=== PATIENT | female | born 1965 | race African-American/Black ===

== ENCOUNTER 2017-01-05 04:47 | Emergency (ER) | payer OTHER ==
--- NOTE | 2017-01-05 04:58 | PDOC ---
History of Present Illness - General Stated Complaint: SWELLING AND PAIN ABDOMEN Time Seen by Provider: 01/05/17 04:57 Past History - Past Medical History Allergies/Adverse Reactions: Allergies Allergy/AdvReac Type Severity Reaction Status Date / Time aspirin AdvReac Severe Difficulty Verified 12/18/11 19:00 Breathing Home Medications: Ambulatory Orders Glipizide [Glucotrol Xl] 10 mg PO DAILY 12/18/11 Isoniazid [INH] 100 mg PO DAILY 12/18/11 Simvastatin [Zocor] 10 mg PO HS 12/18/11 Sulfamethoxazole/Trimethoprim [Bactrim *Ds*] 1 tab PO BID #14 tablet 12/18/11 Diabetes: Yes (NIDDM) Hypercholesterolemia: Yes - Suicide/Smoking/Psychosocial Hx Smoking Status: No Smoking History: Never smoked Number of Cigarettes Smoked Daily: 0
[2017-01-05 05:33] VITALS: BMI 33.8
--- NOTE | 2017-01-05 05:39 | PDOC ---
History of Present Illness - General Chief Complaint: Pain, Acute Stated Complaint: SWELLING AND PAIN ABDOMEN Time Seen by Provider: 01/05/17 04:57 History Source: Patient Exam Limitations: No Limitations - History of Present Illness Initial Comments: This is a 51 YOF with h/o DM, HTN, HTN, and multiple abdominal surgeries (CSx3, partial HYST, total HYST) who presents with left lower abdominal pain for the past 1.5 days. The pain is a constant pressure with sharp 8/10 twinges that are episodic. It radiates to the right lower abdomen and down the front of the left leg. She has taken ibuprofen but no other medications for this. She additionally feels like her left lower abdomen is swollen, and has had left leg mild weak feeling, nausea, vomiting, and urinary frequency. She denies incontinence, numbness, tingling, fever, chills, diarrhea, constipation, strange stool color, burning urination, hematuria, strange colors or smells to urine, sick contacts, or injuries recently. She does heavy lifting at her job but nothing out of the ordinary lately. Past History - Past Medical History Allergies/Adverse Reactions: Allergies Allergy/AdvReac Type Severity Reaction Status Date / Time corn Allergy Rash Verified 01/05/17 06:33 Home Medications: Ambulatory Orders Aspirin [ASA -] 81 mg PO DAILY 01/05/17 Glipizide 10 mg PO DAILY 01/05/17 Lisinopril [Zestril] 2.5 mg PO DAILY 01/05/17 Metformin HCl [Metformin HCl ER] 1,000 mg PO DAILY 01/05/17 Metformin HCl [Metformin HCl ER] 1,000 mg PO DAILY 01/05/17 Simvastatin [Zocor -] 40 mg PO HS 01/05/17 Diabetes: Yes (NIDDM) Hypercholesterolemia: Yes - Suicide/Smoking/Psychosocial Hx Smoking Status: No Smoking History: Never smoked Have you smoked in the past 12 months: No Number of Cigarettes Smoked Daily: 0 Information on smoking cessation initiated: No Hx Alcohol Use: No Drug/Substance Use Hx: No Review of Systems - Review of Systems Constitutional: No: Chills, Fever, Unexplained wgt Loss HEENTM: No: Nose Congestion, Throat Pain Respiratory: No: Cough, Shortness of Breath Cardiac (ROS): No: Chest Pain, Palpitations ABD/GI: Yes: Nausea, Vomiting, Other (abdominal pain). No: Constipated, Diarrhea : Yes: Frequency. No: Burning, Dysuria, Hematuria Musculoskeletal: No: Back Pain, Neck Pain Integumentary: No: Bruising, Rash Neurological: No: Headache, Numbness, Tingling, Dizziness Endocrine: No: Unexplained Weight Gain, Unexplained Weight Loss *Physical Exam - Vital Signs Last Vital Signs Temp Pulse Resp BP Pulse Ox 98.7 F 80 18 127/112 99 01/05/17 05:29 01/05/17 05:29 01/05/17 05:29 01/05/17 05:29 01/05/17 05:29 - Physical Exam General Appearance: Yes: Nourished, Appropriately Dressed, Mild Distress, Other (pleasant but uncomfortable appearing short-statured female with significant other at bedside, occasionally a bit tearful, answering questions appropriately) HEENT: positive: EOMI, Normal Voice, Hearing Grossly Normal. negative: Scleral Icterus (R), Scleral Icterus (L), Nasal Congestion Neck: positive: Trachea midline, Supple. negative: Tender, Rigid Respiratory/Chest: positive: Lungs Clear, Normal Breath Sounds. negative: Respiratory Distress, Crackles, Rhonchi, Stridor, Wheezing Cardiovascular: positive: Regular Rhythm, Regular Rate. negative: Murmur Gastrointestinal/Abdominal: positive: Normal Bowel Sounds, Tender (mild LLQ tenderness, otherwise nontender), Soft. negative: Organomegaly, Pulsatile Mass , Guarding Musculoskeletal: positive: Normal Inspection. negative: Decreased Range of Motion, Vertebral Tenderness Extremity: positive: Normal Capillary Refill, Normal Inspection, Normal Range of Motion. negative: Tender, Cyanosis Integumentary: positive: Normal Color, Dry, Warm. negative: Erythema, Rash, Bruising Neurologic: positive: [employer] II-XII NML intact, Fully Oriented, Alert, Normal Mood/ Affect, Normal Response, Motor Strength 5/5, Other (normal gait) ED Treatment Course - LABORATORY CBC & Chemistry Diagram: 01/05/17 05:20 01/05/17 05:20 - RADIOLOGY Radiology Studies Ordered: Category Date Time Status ABDOMEN & PELVIS CT WITH CONTR [CT] Stat CT Scan 01/05/17 05:26 Ordered Medical Decision Making - Medical Decision Making 51 YOF with DM, HTN, HLD who p/w LLQ pain, nausea, vomiting. VSS but on exam with LLQ ttp and appears in mild distress. DDX IBNLT diverticulitis, UTI/pyelo, renal stone, gastroenteritis, bowel obstruction. Ordered is CBCD, CMP, Mg, Phos, lipase, UA cx, CT abdomen/pelvis with PO contrast. 01/05/17 06:59 Ordered Tylenol PO for pain. Minimal leukocytosis, UA unremarkable but awaiting leukocyte esterase. Alkaline phosphatase mild elevation but other LFTs wnl. Patient's care is signed out to oncoming team. *DC/Admit/Observation/Transfer Diagnosis at time of Disposition: Abdominal pain Qualifiers: Abdominal location: left lower quadrant Qualified Code(s): R10.32 - Left lower quadrant pain - Referrals - Patient Instructions - Post Discharge Activity
[2017-01-05 06:21] LABS: BASOPHIL 0.4 % (0-2.0); EOSINOPHIL 1.1 % (0-4.5); MCH 25.3 pg (25.7-33.7); MCHC 34.1 g/dl (32.0-36.0); MEAN CELL VOLUME 74.4 fl (80-96); MEAN PLT VOLUME 8.8 fl (7.5-11.1); NEUTROPHILS 54.6 % (42.8-82.8); PLATELET COUNT 278 K/MM3 (134-434); RDW 13.1 % (11.6-15.6); WHITE BLOOD COUNT 10.7 K/mm3 (4.0-10.0)
--- NOTE | 2017-01-05 06:31 | PDOC ---
Attending Attestation - Resident Resident Name: PearlFatimah - ED Attending Attestation I have performed the following: I have examined & evaluated the patient, The case was reviewed & discussed with the resident, I agree w/resident's findings & plan - HPI HPI: 01/05/17 06:30 Pt comes with LLQ pain, 7 out of 10 pain. She has no heavy lifting, no fever, no dysuria, no constipation and no diarrhea. Pt has never had this before. - Physicial Exam PE: 01/05/17 06:30 Agree with resident's note - Medical Decision Making 01/05/17 06:31 Possible diverticulitis labs pending. CT abd/pelvis with oral contrast pending. 01/05/17 06:31 Pt will be signed out to the morning team. She will be ready for CT scan at 8: 30 AM
[2017-01-05 06:32] LABS: URINE APPEARANCE CLEAR; URINE BILIRUBIN NEGATIVE (NEGATIVE); URINE BLOOD 1+ (NEGATIVE); URINE COLOR LTYELLOW; URINE GLUCOSE (UA) 1+ (NEGATIVE); URINE KETONE NEGATIVE (NEGATIVE); URINE NITRITE NEGATIVE (NEGATIVE); URINE PROTEIN NEGATIVE (NEGATIVE); URINE UROBILINOGEN NEGATIVE mg/dL (0.2-1.0)
[2017-01-05 06:44] LABS: PHOSPHOROUS 3.6 mg/dL (2.5-4.9)
[2017-01-05 06:45] LABS: MAGNESIUM 2.1 mg/dL (1.8-2.4)
[2017-01-05 06:47] LABS: ALK PHOS 141 U/L (45-117); ANION GAP 8 (8-16); BILIRUBIN,TOTAL 0.4 mg/dL (0.2-1.0); CALCIUM 8.9 mg/dL (8.5-10.1); CO2 25 mmol/L (21-32); CREATININE 0.8 mg/dL (0.55-1.02); GLUCOSE,RANDOM 192 mg/dL (74-106); SGPT/ALT 38 U/L (12-78); TOT PROT 7.9 g/dl (6.4-8.2)
[2017-01-05 06:49] LABS: SGOT/AST 30 U/L (15-37)
[2017-01-05 06:49] LABS: URINE MUCUS RARE; URINE RBC < 1; URINE WBC 1
[2017-01-05] MEDS ORDERED: ACETAMINOPHEN 500 MG TABLET (FP) PO ONE (06:58)
[2017-01-05] MEDS ORDERED: ACETAMINOPHEN 1000 MG/100 ML VIAL (NON FORMULARY) IVPB ONE (06:58)
[2017-01-05] MEDS ORDERED: ACETAMINOPHEN 325 MG TABLET (FP) ONE (07:03)
--- NOTE | 2017-01-05 07:18 | PDOC ---
*Physical Exam - Vital Signs Last Vital Signs Temp Pulse Resp BP Pulse Ox 98.7 F 80 18 127/112 99 01/05/17 05:29 01/05/17 05:29 01/05/17 05:29 01/05/17 05:29 01/05/17 05:35 - Physical Exam Comments: 01/05/17 07:32 GENERAL: Awake, alert, and fully oriented, in no acute distress HEAD: No signs of trauma, normocephalic, atraumatic EYES: PERRLA, EOMI, sclera anicteric, conjunctiva clear ENT: Auricles normal inspection, hearing grossly normal, nares patent, oropharynx clear without exudates. Moist mucosa NECK: Normal ROM, supple, no lymphadenopathy, JVD, or masses LUNGS: No distress, speaks full sentences, clear to auscultation bilaterally HEART: Regular rate and rhythm, normal S1 and S2, no murmurs, rubs or gallops, peripheral pulses normal and equal bilaterally. ABDOMEN: Tender in LLQ with rebound. Normoactive bowel sounds. No guarding. No masses EXTREMITIES: Normal inspection, Normal range of motion, no edema. No clubbing or cyanosis. NEUROLOGICAL: Cranial nerves II through XII grossly intact. Normal speech, no focal sensorimotor deficits SKIN: Warm, Dry, normal turgor, no rashes or lesions noted. ED Treatment Course - LABORATORY CBC & Chemistry Diagram: 01/05/17 05:20 01/05/17 05:20 - ADDITIONAL ORDERS Additional order review: Laboratory Results 01/05/17 01/05/17 01/05/17 05:30 05:20 05:20 Sodium Potassium Chloride Carbon Dioxide Anion Gap BUN Creatinine Creat Clearance w eGFR Random Glucose Calcium Phosphorus 3.6 Magnesium 2.1 Total Bilirubin AST ALT Alkaline Phosphatase Total Protein Albumin Lipase 219 Urine Color Ltyellow Urine Appearance Clear Urine pH 5.0 D Ur Specific [place] 1.026 Urine Protein Negative Urine Glucose (UA) 1+ H D Urine Ketones Negative Urine Blood 1+ H Urine Nitrite Negative Urine Bilirubin Negative Urine Urobilinogen Negative Urine WBC (Auto) 1 Urine RBC (Auto) < 1 Ur Epithelial Cells Rare Urine Mucus Rare 01/05/17 05:20 Sodium 138 Potassium 4.9 Chloride 105 Carbon Dioxide 25 Anion Gap 8 BUN 16 Creatinine 0.8 Creat Clearance w eGFR > 60 Random Glucose 192 H Calcium 8.9 Phosphorus Magnesium Total Bilirubin 0.4 AST 30 ALT 38 Alkaline Phosphatase 141 H Total Protein 7.9 Albumin 4.0 Lipase Urine Color Urine Appearance Urine pH Ur Specific [place] Urine Protein Urine Glucose (UA) Urine Ketones Urine Blood Urine Nitrite Urine Bilirubin Urine Urobilinogen Urine WBC (Auto) Urine RBC (Auto) Ur Epithelial Cells Urine Mucus 01/05/17 05:20 RBC 5.09 MCV 74.4 L MCHC 34.1 RDW 13.1 MPV 8.8 Neutrophils % 54.6 Lymphocytes % 37.7 Monocytes % 6.2 Eosinophils % 1.1 Basophils % 0.4 Medical Decision Making - Medical Decision Making 01/05/17 07:17 Patient care assumed from Dr Alexandra. Patient is a 51F with history of NIDDM and HTN here today complaining of left lower abdominal pain. CT pending. Afebrile, vital signs stable. Exam shows some tenderness in LLQ with rebound. 01/05/17 08:07 IV access was not completed, patient refused additional stick this morning. Will do CT with PO contrast only. 01/05/17 18:19 CT shows diverticulitis. Patient has never had diverticulitis before. Will treat with cipro and metro for 10 days. Given return precautions and told to follow up with PCP. Discharged to home. *DC/Admit/Observation/Transfer Diagnosis at time of Disposition: Diverticulitis Abdominal pain Qualifiers: Abdominal location: left lower quadrant Qualified Code(s): R10.32 - Left lower quadrant pain - Discharge Dispostion Disposition: HOME Condition at time of disposition: Good Admit: No - Prescriptions Prescriptions: Ciprofloxacin [Cipro -] 500 mg PO BID #19 tablet Metronidazole [Flagyl -] 500 mg PO TID #29 tablet - Referrals - Patient Instructions Printed Discharge Instructions: DI for Diverticulitis Additional Instructions: Please come back if you have any new, worsening or concerning symptoms. Please see your PMD early this week. - Dr Dias - Post Discharge Activity
[2017-01-05] MEDS ORDERED: CIPROFLOXACIN 500 MG TABLET (RESTRICTED TO ID) PO ONE (08:54)
[2017-01-05] MEDS ORDERED: metroNIDAZOLE 500 MG TABLET PO ONE (08:54)
[2017-01-05] MEDS ORDERED: metroNIDAZOLE 250 MG TABLET ONE (09:11)
[2017-01-05 09:28] VITALS: BP 135/80; PULSE 82; TEMP 98
[2017-01-05 12:49] LABS: URINE LEUK ESTERASE Negative (NEGATIVE)
== END 2017-01-05 09:29 | disposition home or self-care (01) ==
LOC: JER 04:47
DX: K57.92 Diverticulitis of intestine, part unspecified, without perforation or abscess without bleeding (principal); I10 Essential (primary) hypertension; E78.00 Pure hypercholesterolemia, unspecified; E11.9 Type 2 diabetes mellitus without complications; Z79.84 Long term (current) use of oral hypoglycemic drugs
CPT/HCPCS: 36415; 74176-TC; 80053; 81003; 81015; 83690; 83735; 84100; 85025; 87086; 99284-25; Q9967

== ENCOUNTER 2017-01-10 22:47 | Inpatient (IN) | payer OTHER ==
[2017-01-10 22:52] VITALS: BMI 34.3
--- NOTE | 2017-01-10 23:03 | PDOC ---
Rapid Medical Evaluation Chief Complaint: Pain Time Seen by Provider: 01/10/17 22:48 Medical Evaluation: Allergies Allergy/AdvReac Type Severity Reaction Status Date / Time corn Allergy Rash Verified 01/05/17 06:33 01/10/17 22:48 I have performed a brief in-person evaluation of this patient. The patient presents with a chief complaint of: Lower Abdominal Pain Pertinent physical exam findings: Lower abdominal tenderness I have ordered the following: UA, U-Preg. The patient will proceed to the ED for further evaluation
[2017-01-10 23:07] LABS: URINE APPEARANCE SLCLOUDY; URINE BILIRUBIN NEGATIVE (NEGATIVE); URINE BLOOD NEGATIVE (NEGATIVE); URINE COLOR DKYELLOW; URINE GLUCOSE (UA) NEGATIVE (NEGATIVE); URINE KETONE TRACE (NEGATIVE); URINE NITRITE NEGATIVE (NEGATIVE); URINE PROTEIN 2+ (NEGATIVE); URINE UROBILINOGEN NEGATIVE mg/dL (0.2-1.0)
[2017-01-10] MEDS ORDERED: ONDANSETRON 4 MG/2 ML VIAL IVPUSH ONE (23:10)
[2017-01-10] MEDS ORDERED: HYDROmorphone HCL CARPU-JECT 1 MG/1 ML DISP.SYRIN IVPUSH ONE (23:10)
[2017-01-10] MEDS ORDERED: SODIUM CHLORIDE 1,000 ML IV STA (23:10)
[2017-01-10 23:11] LABS: URINE HYALINE CAST 8 /lpf; URINE MUCUS FEW; URINE RBC 8; URINE WBC 5
--- NOTE | 2017-01-10 23:21 | PDOC ---
History of Present Illness - General Chief Complaint: Pain Stated Complaint: PAIN Time Seen by Provider: 01/10/17 23:02 History Source: Patient Exam Limitations: No Limitations - History of Present Illness Initial Comments: 01/10/17 23:15 Patient is a 51F with history of HTN, NIDDM, s/p c/s x2, partial hysterectomy and total hysterectomy here today complaining of lower left quadrant abdominal pain radiating to the right side. The patient was seen 5 days ago and was diagnosed with diverticulitis. She was treated as an outpatient with metro and cipro, which she reports taking as directed. She is now complaining of worsening pain, nausea, vomiting, fevers, chills and diarrhea. She denies blood or melena in stool. She denies blood in vomit. She denies chest pain, shortness of breath and leg swelling. Past History - Past Medical History Allergies/Adverse Reactions: Allergies Allergy/AdvReac Type Severity Reaction Status Date / Time corn Allergy Rash Verified 01/10/17 22:50 Home Medications: Ambulatory Orders Aspirin [ASA -] 81 mg PO DAILY 01/05/17 Ciprofloxacin [Cipro -] 500 mg PO BID #19 tablet 01/05/17 Glipizide 10 mg PO DAILY 01/05/17 Lisinopril [Zestril] 2.5 mg PO DAILY 01/05/17 Metformin HCl [Metformin HCl ER] 1,000 mg PO DAILY 01/05/17 Metronidazole [Flagyl -] 500 mg PO TID #29 tablet 01/05/17 Simvastatin [Zocor -] 40 mg PO HS 01/05/17 COPD: No Diabetes: Yes (NIDDM) HTN: Yes Hypercholesterolemia: Yes - Immunization History Immunization Up to Date: Yes - Suicide/Smoking/Psychosocial Hx Smoking Status: No Smoking History: Never smoked Have you smoked in the past 12 months: No Number of Cigarettes Smoked Daily: 0 Hx Alcohol Use: No Drug/Substance Use Hx: No Review of Systems - Review of Systems Comments:: 01/10/17 23:19 GENERAL/CONSTITUTIONAL: Positive fevers and chills. No weakness. HEAD, EYES, EARS, NOSE AND THROAT: No change in vision. No sore throat. CARDIOVASCULAR: No chest pain or shortness of breath RESPIRATORY: No cough, wheezing, or hemoptysis. GASTROINTESTINAL: Positive for nausea, vomiting, and diarrhea. GENITOURINARY: No dysuria, frequency, or change in urination. SKIN: No rash NEUROLOGIC: No headache, vertigo, loss of consciousness, or change in strength/ sensation. ENDOCRINE: No increased thirst. No abnormal weight change HEMATOLOGIC/LYMPHATIC: No anemia, easy bleeding, or history of blood clots. ALLERGIC/IMMUNOLOGIC: No hives or skin allergy. *Physical Exam - Vital Signs Last Vital Signs Temp Pulse Resp BP Pulse Ox 98.7 F 98 H 156/94 100 01/10/17 22:50 01/10/17 22:50 01/10/17 22:50 01/10/17 22:50 - Physical Exam Comments: 01/10/17 23:21 GENERAL: Awake, alert, and fully oriented, in pain but able to ambulate HEAD: No signs of trauma, normocephalic, atraumatic EYES: PERRLA, EOMI, sclera anicteric, conjunctiva clear ENT: Auricles normal inspection, hearing grossly normal, nares patent, oropharynx clear without exudates. Moist mucosa NECK: Normal ROM, supple, no lymphadenopathy, JVD, or masses LUNGS: No distress, speaks full sentences, clear to auscultation bilaterally HEART: Regular rate and rhythm, normal S1 and S2, no murmurs, rubs or gallops, peripheral pulses normal and equal bilaterally. ABDOMEN: Tender in LLQ. Mildly tender in RLQ. No guarding, no rebound. No masses EXTREMITIES: Normal inspection, Normal range of motion, no edema. No clubbing or cyanosis. NEUROLOGICAL: Cranial nerves II through XII grossly intact. Normal speech, normal gait, no focal sensorimotor deficits SKIN: Warm, Dry, normal turgor, no rashes or lesions noted. ED Treatment Course - LABORATORY CBC & Chemistry Diagram: 01/10/17 23:21 01/10/17 23:21 - ADDITIONAL ORDERS Additional order review: Laboratory Results 01/10/17 23:00 Urine Color Dkyellow Urine Appearance Slcloudy Urine pH 5.0 Ur Specific [place] 1.026 Urine Protein 2+ H Urine Glucose (UA) Negative Urine Ketones Trace H Urine Blood Negative Urine Nitrite Negative Urine Bilirubin Negative Urine Urobilinogen Negative Urine WBC (Auto) 5 Urine RBC (Auto) 8 Ur Epithelial Cells Few Hyaline Casts 8 Urine Mucus Few Urine HCG, Qual Negative Medical Decision Making - Medical Decision Making 01/10/17 23:22 51F with history of DM, HTN, multiple prior abdominal surgeries here today with LLQ pain after being diagnosed with diverticulitis. Compliant with outpatient therapy. Vital signs stable and normal. Will evaluate with labs and CT scan with PO/IV contrast to evaluate the evolution of her disease course. Will treat with iv fluids, dilaudid, and abx. 01/11/17 00:53 Laboratory Tests 01/10/17 01/10/17 23:21 23:21 WBC 13.6 H Hgb 12.2 Hct 36.4 Plt Count 303 BUN 12 D Creatinine 0.8 CBC shows leukocytosis, H/H normal. Kidney function normal. UA negative. 01/11/17 06:54 CT scan, read by imaging personal driver, shows diverticulosis and describes the wall of the descending colon as slightly prominent. Recommends clinical correlation. Patient's abdominal exam is still very tender, patient is requiring pain medication. Will admit to hospitalist for IV antibiotics and a surgical consult. *DC/Admit/Observation/Transfer Diagnosis at time of Disposition: Abdominal pain - Referrals - Patient Instructions - Post Discharge Activity
[2017-01-10 23:33] LABS: BASOPHIL 0.4 % (0-2.0); MCH 25.2 pg (25.7-33.7); MCHC 33.6 g/dl (32.0-36.0); MEAN CELL VOLUME 74.8 fl (80-96); MEAN PLT VOLUME 8.1 fl (7.5-11.1); NEUTROPHILS 64.7 % (42.8-82.8); PLATELET COUNT 303 K/MM3 (134-434); RDW 13.3 % (11.6-15.6); WHITE BLOOD COUNT 13.6 K/mm3 (4.0-10.0)
[2017-01-10] MEDS ORDERED: HYDROmorphone HCL CARPU-JECT 1 MG/1 ML DISP.SYRIN ONE (23:40)
[2017-01-11 00:13] LABS: ANION GAP 13 (8-16); BILIRUBIN,TOTAL 0.3 mg/dL (0.2-1.0); CALCIUM 9.2 mg/dL (8.5-10.1); CO2 22 mmol/L (21-32); CREATININE 0.8 mg/dL (0.55-1.02); GLUCOSE,RANDOM 116 mg/dL (74-106); SGOT/AST 25 U/L (15-37); SGPT/ALT 43 U/L (12-78); TOT PROT 7.5 g/dl (6.4-8.2)
[2017-01-11 00:14] LABS: ALK PHOS 129 U/L (45-117)
[2017-01-11] MEDS ORDERED: PIPERACILLIN/TAZOB 4.5 GM/100 ML PREMIX BAG IVPB ONE ×2 (00:21→01:04)
[2017-01-11] MEDS ORDERED: PIPERACILLIN/TAZOB 4.5 GM 4.5 GM/100 ML BAG IVPB ONE (01:01)
[2017-01-11 01:08] LABS: INR 1.12 (0.82-1.09); PROTHROMBIN TIME (PATIENT) 12.7 SEC (9.98-11.88)
--- NOTE | 2017-01-11 01:57 | PDOC ---
Attending Attestation - HPI HPI: 01/11/17 02:00 The patient is a 51 year old female, with a significant past medical history of DM, hypertension, multiple abdominal surgeries (CSx3, partial HYS, total HYST) who presents to the emergency department complaining of progressively worsening diffuse abdominal pain. She describes the abdominal pain as constant and worse with palpation. The patient states she was seen here at [facility] approx. one week ago for abdominal pain and diagnosed with diverticulitis.She reports associated symptoms of nausea with vomit, fever and chills. She denies chest pain or shortness of breath. Documentation prepared by Chuy Grewal, acting as medical imaging director for Eduardo Solis MD. - Physicial Exam PE: 01/11/17 02:06 Vitals: Triage Vital signs reviewed General Appearance: moderate distress, well nourished well developed Cardiac: Regular rate and rhythym, no murmurs, no rubs, no gallops Lungs: Clear to auscultation bilateral, good air movement bilaterally Abdomen: +Right lower quadrant tenderness. Extremities: Full range of motion to all extremities, no cyanosis, clubbing, or edema Skin: Warm and dry, no rashes or lesions, no rash, no petechiae Neuro: AOX3; Cranial Nerves 2-12 grossly intact, Strength intact to all extremities, Sensation intact to all extremities, gait normal Psych: Normal mood, normal affect <Chuy Grewal - Last Filed: 01/11/17 02:06> - Resident Resident Name: Jacob Dias - ED Attending Attestation I have performed the following: I have examined & evaluated the patient, The case was reviewed & discussed with the resident, I agree w/resident's findings & plan, Exceptions are as noted - Medical Decision Making 01/11/17 02:32 Diverticulitis 1 week ago presents to the ED with worsening abdominal pain nausea vomiting IV fluids Zosyn and repeat CTA ordered Signout 2:30 AM. Doctor contacted follow-up results and reassess. <Eduardo Solis - Last Filed: 01/11/17 02:32>
--- NOTE | 2017-01-11 08:06 | PDOC ---
*Physical Exam - Vital Signs Last Vital Signs Temp Pulse Resp BP Pulse Ox 98.7 F 80 16 110/54 100 01/10/17 22:50 01/11/17 06:55 01/11/17 06:55 01/11/17 06:55 01/10/17 22:50 - Physical Exam Comments: 01/11/17 08:03 Pain currently well controlled with Dilaudid Asleep Discussed case with Hospitalist Resident Dr. Berrios, agrees with admission to admit for Diverticulitis. ED Treatment Course - LABORATORY CBC & Chemistry Diagram: 01/10/17 23:21 01/10/17 23:21 - ADDITIONAL ORDERS Additional order review: Laboratory Results 01/11/17 01/11/17 01/11/17 00:46 00:40 00:21 PT with INR 12.70 H INR 1.12 Sodium Potassium Chloride Carbon Dioxide Anion Gap BUN Creatinine Creat Clearance w eGFR Random Glucose Calcium Total Bilirubin AST ALT Alkaline Phosphatase Total Protein Albumin Lipase Urine Color Urine Appearance Urine pH Ur Specific [place] Urine Protein Urine Glucose (UA) Urine Ketones Urine Blood Urine Nitrite Urine Bilirubin Urine Urobilinogen Urine WBC (Auto) Urine RBC (Auto) Ur Epithelial Cells Hyaline Casts Urine Mucus Urine HCG, Qual Blood Type A POSITIVE A POSITIVE Antibody Screen Negative 01/10/17 01/10/17 23:21 23:00 PT with INR INR Sodium 140 Potassium 3.9 D Chloride 105 Carbon Dioxide 22 Anion Gap 13 BUN 12 D Creatinine 0.8 Creat Clearance w eGFR > 60 Random Glucose 116 H D Calcium 9.2 Total Bilirubin 0.3 D AST 25 ALT 43 Alkaline Phosphatase 129 H Total Protein 7.5 Albumin 4.0 Lipase 136 Urine Color Dkyellow Urine Appearance Slcloudy Urine pH 5.0 Ur Specific [place] 1.026 Urine Protein 2+ H Urine Glucose (UA) Negative Urine Ketones Trace H Urine Blood Negative Urine Nitrite Negative Urine Bilirubin Negative Urine Urobilinogen Negative Urine WBC (Auto) 5 Urine RBC (Auto) 8 Ur Epithelial Cells Few Hyaline Casts 8 Urine Mucus Few Urine HCG, Qual Negative Blood Type Antibody Screen 01/10/17 23:21 RBC 4.87 MCV 74.8 L MCHC 33.6 RDW 13.3 MPV 8.1 Neutrophils % 64.7 Lymphocytes % 26.8 D Monocytes % 7.1 Eosinophils % 1.0 Basophils % 0.4 - Medications Given in the ED: ED Medications Discontinued Medications Generic Name Dose Route Start Last Admin Trade Name Hayse PRN Reason Stop Dose Admin Hydromorphone HCl 1 mg 01/10/17 23:10 01/10/17 23:43 Dilaudid Injection - IVPUSH 01/10/17 23:11 1 mg ONCE ONE Administration Sodium Chloride 1,000 mls @ 1,000 mls/hr 01/10/17 23:10 01/10/17 23:05 Normal Saline - IV 01/11/17 00:09 1,000 mls/hr ASDIR STA Administration Ondansetron HCl 4 mg 01/10/17 23:10 01/10/17 23:43 Zofran Injection IVPUSH 01/10/17 23:11 4 mg ONCE ONE Administration Piperacillin/Tazobactam/Dextrose 4.5 gm 01/11/17 01:04 01/11/17 01:00 Zosyn 4.5gm Ivpb (Premix) IVPB 01/11/17 01:05 4.5 gm NOW ONE Administration *DC/Admit/Observation/Transfer Diagnosis at time of Disposition: Abdominal pain - Discharge Dispostion Decision to Admit order Date/Time: Decision to Admit Order Category Date Time Status Decision to Admit to Hospital Routine Admission 01/11/17 08:01 Ordered - Referrals - Patient Instructions - Post Discharge Activity
[2017-01-11] MEDS ORDERED: morphine SULFATE 4 MG/ML VIAL IVPUSH PRN (08:56)
[2017-01-11] MEDS ORDERED: HEPARIN NA (PORCINE) 5,000 UNITS/ML 1ML VIAL ONE (10:26)
[2017-01-11] MEDS ORDERED: CEFTRIAXONE 1 GM/50 ML BAG ONE (10:26)
[2017-01-11] MEDS ORDERED: METRONIDAZOLE 500 MG PREMIXED 500 MG/100 ML MG IVPB ONE (10:26)
[2017-01-11] MEDS: HEPARIN NA (PORCINE) 5,000 UNITS/ML 1ML VIAL SQ SCH ×2 (10:30→13:41)
[2017-01-11] MEDS: SODIUM CHLORIDE 1,000 ML IV SCH (10:30)
[2017-01-11] MEDS: CEFTRIAXONE 1 GM in DEXTROSE 5%-WATER - 50 ML IVPB SCH ×2 (10:30→13:40)
[2017-01-11] MEDS ORDERED: INSULIN SLIDING SCALE (NOVOLOG) 1 VIAL SQ SCH (11:00)
--- NOTE | 2017-01-11 11:55 | HP ---
CHIEF COMPLAINT: PCP: HISTORY OF PRESENT ILLNESS: ER course was notable for: (1) (2) (3) Recent Travel: PAST MEDICAL HISTORY: PAST SURGICAL HISTORY: Social History: Smoking: Alcohol: Drugs: Family History: Allergies corn Allergy (Verified 01/10/17 22:50) Rash HOME MEDICATIONS: Home Medications Medication Instructions Recorded Aspirin [ASA -] 81 mg PO DAILY 01/05/17 Ciprofloxacin [Cipro -] 500 mg PO BID #19 tablet 01/05/17 Glipizide 10 mg PO DAILY 01/05/17 Lisinopril [Zestril] 2.5 mg PO DAILY 01/05/17 Metformin HCl [Metformin HCl ER] 1,000 mg PO DAILY 01/05/17 Metronidazole [Flagyl -] 500 mg PO TID #29 tablet 01/05/17 Simvastatin [Zocor -] 40 mg PO HS 01/05/17 REVIEW OF SYSTEMS CONSTITUTIONAL: Absent: fever, chills, diaphoresis, generalized weakness, malaise, loss of appetite, weight change HEENT: Absent: rhinorrhea, nasal congestion, throat pain, throat swelling, difficulty swallowing, mouth swelling, ear pain, eye pain, visual changes CARDIOVASCULAR: Absent: chest pain, syncope, palpitations, irregular heart rate, lightheadedness , peripheral edema RESPIRATORY: Absent: cough, shortness of breath, dyspnea with exertion, orthopnea, wheezing, stridor, hemoptysis GASTROINTESTINAL: Absent: abdominal pain, abdominal distension, nausea, vomiting, diarrhea, constipation, melena, hematochezia GENITOURINARY: Absent: dysuria, frequency, urgency, hesitancy, hematuria, flank pain, genital pain MUSCULOSKELETAL: Absent: myalgia, arthralgia, joint swelling, back pain, neck pain SKIN: Absent: rash, itching, pallor HEMATOLOGIC/IMMUNOLOGIC: Absent: easy bleeding, easy bruising, lymphadenopathy, frequent infections ENDOCRINE: Absent: unexplained weight gain, unexplained weight loss, heat intolerance, cold intolerance NEUROLOGIC: Absent: headache, focal weakness or paresthesias, dizziness, unsteady gait, seizure, mental status changes, bladder or bowel incontinence PSYCHIATRIC: Absent: anxiety, depression, suicidal or homicidal ideation, hallucinations. PHYSICAL EXAMINATION Vital Signs - 24 hr 01/10/17 01/11/17 01/11/17 22:50 06:55 09:00 Temperature 98.7 F 98.6 F Pulse Rate [ 80 Right Brachial] Pulse Rate [ 66 Right] Respiratory 98 H 16 16 Rate Blood Pressure 156/94 Blood Pressure 110/54 100/67 [Right Arm] O2 Sat by Pulse 100 99 Oximetry (%) GENERAL: Awake, alert, and fully oriented, in no acute distress. HEAD: Normal with no signs of trauma. EYES: Pupils equal, round and reactive to light, extraocular movements intact, sclera anicteric, conjunctiva clear. No lid lag. EARS, NOSE, THROAT: Ears normal, nares patent, oropharynx clear without exudates. Moist mucous membranes. NECK: Normal range of motion, supple without lymphadenopathy, JVD, or masses. LUNGS: Breath sounds equal, clear to auscultation bilaterally. No wheezes, and no crackles. No accessory muscle use. HEART: Regular rate and rhythm, normal S1 and S2 without murmur, rub or gallop. ABDOMEN: Soft, nontender, not distended, normoactive bowel sounds, no guarding, no rebound, no masses. No hepatomegaly or splenomegaly. MUSCULOSKELETAL: Normal range of motion at all joints. No bony deformities or tenderness. No CVA tenderness. UPPER EXTREMITIES: 2+ pulses, warm, well-perfused. No cyanosis. No clubbing. No peripheral edema. LOWER EXTREMITIES: 2+ pulses, warm, well-perfused. No calf tenderness. No peripheral edema. NEUROLOGICAL: Cranial nerves II-XII intact. Normal speech. Normal gait. PSYCHIATRIC: Cooperative. Good eye contact. Appropriate mood and affect. SKIN: Warm, dry, normal turgor, no rashes or lesions noted, normal capillary refill. Laboratory Results - last 24 hr 01/10/17 01/10/17 01/10/17 23:00 23:21 23:21 WBC 13.6 H RBC 4.87 Hgb 12.2 Hct 36.4 MCV 74.8 L MCH 25.2 L MCHC 33.6 RDW 13.3 Plt Count 303 MPV 8.1 Neutrophils % 64.7 Lymphocytes % 26.8 D Monocytes % 7.1 Eosinophils % 1.0 Basophils % 0.4 PT with INR INR Sodium 140 Potassium 3.9 D Chloride 105 Carbon Dioxide 22 Anion Gap 13 BUN 12 D Creatinine 0.8 Creat Clearance w eGFR > 60 Random Glucose 116 H D Calcium 9.2 Total Bilirubin 0.3 D AST 25 ALT 43 Alkaline Phosphatase 129 H Total Protein 7.5 Albumin 4.0 Lipase 136 Urine Color Dkyellow Urine Appearance Slcloudy Urine pH 5.0 Ur Specific [place] 1.026 Urine Protein 2+ H Urine Glucose (UA) Negative Urine Ketones Trace H Urine Blood Negative Urine Nitrite Negative Urine Bilirubin Negative Urine Urobilinogen Negative Urine WBC (Auto) 5 Urine RBC (Auto) 8 Ur Epithelial Cells Few Hyaline Casts 8 Urine Mucus Few Urine HCG, Qual Negative Blood Type Antibody Screen 01/11/17 01/11/17 01/11/17 00:21 00:40 00:46 WBC RBC Hgb Hct MCV MCH MCHC RDW Plt Count MPV Neutrophils % Lymphocytes % Monocytes % Eosinophils % Basophils % PT with INR 12.70 H INR 1.12 Sodium Potassium Chloride Carbon Dioxide Anion Gap BUN Creatinine Creat Clearance w eGFR Random Glucose Calcium Total Bilirubin AST ALT Alkaline Phosphatase Total Protein Albumin Lipase Urine Color Urine Appearance Urine pH Ur Specific [place] Urine Protein Urine Glucose (UA) Urine Ketones Urine Blood Urine Nitrite Urine Bilirubin Urine Urobilinogen Urine WBC (Auto) Urine RBC (Auto) Ur Epithelial Cells Hyaline Casts Urine Mucus Urine HCG, Qual Blood Type A POSITIVE A POSITIVE Antibody Screen Negative ASSESSMENT/PLAN:
[2017-01-11] MEDS: METRONIDAZOLE 500 MG PREMIXED 500 MG/100 ML MG IVPB SCH ×3 (13:01→17:21)
[2017-01-11 13:42] LABS: CHOLESTEROL 122 mg/dL (50-200)
--- NOTE | 2017-01-11 13:57 | PN ---
Teaching Attending Note Name of Resident: Patrizia Berrios ATTENDING PHYSICIAN STATEMENT I saw and evaluated the patient. I reviewed the resident's note and discussed the case with the resident. I agree with the resident's findings and plan as documented. SUBJECTIVE: CC: ABd pain and diarrhea. HPI: 51 y/o pleasant lady with h/o HTN, DM, Hysterectomy who presented with ABD pain and diarrhea x 1 week . A week ago , she presented to ER with abd pain/ diarrhea /N/V and was diagnosed with acute sigmoid diverticulitis depending on a CT scan image. She was dc 'd on cipro and flagyl. Her sx continued after abx and she felt her abd is more distended now. reports nausea and non bilious or bloody vomiting. abd pain is in LLQ and suprapubic area, with minimal radiation to RLQ. diarrhea is watery stool and not bloody . reports chills at home . denies dysuria or change in urine habits LAst colonoscopy 10 yrs ago with no malignancy reportedly and she denies any h/ o colon cancer in family OBJECTIVE: NAD , AAOx3 ,pleasant and cooperative CV: RRR, no MRG Lung s: CTAB Abd: soft, ND , TTP in LLQ , and suprapubic area with no rebound tenderness or guarding. Ros[place] sign Neg , Lea's Neg , [place] Neg. , + Psoas and Neg Obterator's . Neg CVA tenderness. EXT: no edema or erythema. Neuro : EOMI, round equal pupils, reactive tolight , No facial droop. tongue at mid line , Nl facial sensation . Strenght 5/5 in upper and lower ext proximally and distally . Sensation to light touch NL. reflexes 2+ knee jerk, and 1+ biceps b/l. ASSESSMENT AND PLAN: 51 y/o pleasant lady with h/o HTN, DM, Hysterectomy and recent dx of sigmoid colitis who presented with ABD pain and diarrhea x 1 week after despite being on Abx. She was diagnosed with acute diverticulitis and colitis 1- Acute diverticulitis with colitis: No evidence of acute appendicitis, or acute cholecystitis. No hemodynamic instability. No peritoneal signs . - start ceftriaxone and flagyl - send stool cx and C diff. - IVF - bowel rest today . clears tomorrow - Monitor abd exam. - blood cx sent in ER 2- H/o DM : A1c 9 . was recently started on Meds - hold po meds and add SSI 3- H/o HTN: Cont lisinopril 4- H/o HLP , cont lipitor . HLOC.
[2017-01-11] MEDS: ENOXAPARIN NA (PORCINE) 40 MG/0.4 ML DISP.SYRIN SQ SCH (14:24)
--- NOTE | 2017-01-11 15:23 | HP ---
CHIEF COMPLAINT: LLQ pain PCP: Not on staff HISTORY OF PRESENT ILLNESS: Patient is a 51 year old female with a PMHx of HTN, HLD, NIDDMII who presents today for worsening abdominal pain. Patient initially presented a week ago for LLQ abdominal pain and was found to have Diverticulitis. Patient was discharged from the ED with PO antibiotics and was told to return if symptoms worsened. Patient reports she was in her normal state of health last week when she started having sudden LLQ abdominal pain associated with nausea and diarrhea. Patient states she was given PO antibiotics from this ED and reports compliance with the medication. However, the abdominal pain persisted and worsened throughout the week, which prompted this hospital visit. Patient reports the pain is in the LLQ now radiating to the RLQ region and describes it as a "gabbing" and "squeezing" that is constant in nature, worsened when she eats, walks or leans forward and alleviated with Ibuprofen. Pain is now associated with nausea, vomiting x3 and nonbloody diarrhea. Patient does report a similar history of pain but not as severe as this a few years ago when she was diagnosed with a food allergy to corn and corn syrup products. Patient had a colonscopy 10 years ago with normal findings. She is unable to recall why she needed a colonoscopy at age 40. Patient denies any chronic NSAID use. She does admit to low fiber diet and has recently modified her diet after her diagnosis of Diabetes to more protein intake. Otherwise, patient denies fever, chills, chest pain, palpitations, shortness of breath, acute vision changes, headaches, dysuria, hematuria, frequency. ER course was notable for: (1)Abdominal CT with contrast that shows worsening Diverticulitis and Colitis (2) 1 Bolus IV NS (3) Zosyn 4.5mg IV, Zofran, and Dilaudid Recent Travel: Denies PAST MEDICAL HISTORY: NIDDMII, HTN, HLD. PAST SURGICAL HISTORY: 3 C-sections, Tummy tuck, and Two Hysterectomies- One partial then one complete Social History: Lives with Fiance and three children. 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 Smoking: Denies Alcohol: Denies Drugs: Denies Family History: Mother- DM Allergies: corn Allergy (Verified 01/10/17 22:50) Rash and Diarrhea HOME MEDICATIONS: Home Medications Medication Instructions Recorded Aspirin [ASA -] 81 mg PO DAILY 01/05/17 Ciprofloxacin [Cipro -] 500 mg PO BID #19 tablet 01/05/17 Glipizide 10 mg PO DAILY 01/05/17 Lisinopril [Zestril] 2.5 mg PO DAILY 01/05/17 Metformin HCl [Metformin HCl ER] 1,000 mg PO BID 01/05/17 Metronidazole [Flagyl -] 500 mg PO TID #29 tablet 01/05/17 Simvastatin [Zocor -] 40 mg PO HS 01/05/17 Metformin HCl 500 mg PO HS 01/11/17 REVIEW OF SYSTEMS CONSTITUTIONAL: Absent: fever, chills, diaphoresis, generalized weakness, malaise, loss of appetite, weight change HEENT: Absent: rhinorrhea, nasal congestion, throat pain, throat swelling, difficulty swallowing, mouth swelling, ear pain, eye pain, visual changes CARDIOVASCULAR: Absent: chest pain, syncope, palpitations, irregular heart rate, lightheadedness , peripheral edema RESPIRATORY: Absent: cough, shortness of breath, dyspnea with exertion, orthopnea, wheezing, stridor, hemoptysis GASTROINTESTINAL: abdominal pain, abdominal distension, nausea, vomiting, diarrhea, constipation Absent: melena, hematochezia GENITOURINARY: Absent: dysuria, frequency, urgency, hesitancy, hematuria, flank pain, genital pain MUSCULOSKELETAL: Absent: myalgia, arthralgia, joint swelling, back pain, neck pain SKIN: Absent: rash, itching, pallor HEMATOLOGIC/IMMUNOLOGIC: Absent: easy bleeding, easy bruising, lymphadenopathy, frequent infections ENDOCRINE: Absent: unexplained weight gain, unexplained weight loss, heat intolerance, cold intolerance NEUROLOGIC: Absent: headache, focal weakness or paresthesias, dizziness, unsteady gait, seizure, mental status changes, bladder or bowel incontinence PSYCHIATRIC: Absent: anxiety, depression, suicidal or homicidal ideation, hallucinations. PHYSICAL EXAMINATION Vital Signs - 24 hr 01/10/17 01/11/17 01/11/17 22:50 06:55 09:00 Temperature 98.7 F 98.6 F Pulse Rate Pulse Rate [ 80 Right Brachial] Pulse Rate [ 66 Right] Respiratory 98 H 16 16 Rate Blood Pressure 156/94 Blood Pressure 110/54 100/67 [Right Arm] O2 Sat by Pulse 100 99 Oximetry (%) 01/11/17 01/11/17 13:19 14:05 Temperature 98.8 F 97.9 F Pulse Rate 66 Pulse Rate [ Right Brachial] Pulse Rate [ 71 Right] Respiratory 14 18 Rate Blood Pressure 104/71 Blood Pressure 106/76 [Right Arm] O2 Sat by Pulse 100 Oximetry (%) GENERAL: Awake, alert, and fully oriented, in no acute distress. HEAD: Normal with no signs of trauma. EYES: Pupils equal, round and reactive to light, extraocular movements intact, sclera anicteric, conjunctiva clear. EARS, NOSE, THROAT: Oropharynx clear without exudates. Moist mucous membranes. NECK: Normal range of motion, supple without lymphadenopathy, JVD, or masses. LUNGS: Breath sounds equal, clear to auscultation bilaterally. No wheezes, and no crackles. No accessory muscle use. HEART: Regular rate and rhythm, normal S1 and S2 without murmur, rub or gallop. ABDOMEN: Soft, obese, distended, moderate tenderness upon palpation of LLQ and RLQ with (+) Psoas sign, normoactive bowel sounds, no guarding, no rebound, no masses. (-) Pritchard's sign MUSCULOSKELETAL: No CVA tenderness. UPPER EXTREMITIES: 2+ pulses, warm, well-perfused. No cyanosis. No clubbing. No peripheral edema. LOWER EXTREMITIES: 2+ pulses, warm, well-perfused. No calf tenderness. No peripheral edema. NEUROLOGICAL: Cranial nerves II-XII intact. Normal speech. Normal gait. Motor strength 5/5 bilaterally, sensory intact. No facial droop. PSYCHIATRIC: Cooperative. Good eye contact. Appropriate mood and affect. SKIN: Warm, dry, normal turgor, no rashes or lesions noted, normal capillary refill. Laboratory Results - last 24 hr 01/10/17 01/10/17 01/10/17 23:00 23:21 23:21 WBC 13.6 H RBC 4.87 Hgb 12.2 Hct 36.4 MCV 74.8 L MCH 25.2 L MCHC 33.6 RDW 13.3 Plt Count 303 MPV 8.1 Neutrophils % 64.7 Lymphocytes % 26.8 D Monocytes % 7.1 Eosinophils % 1.0 Basophils % 0.4 PT with INR INR Sodium 140 Potassium 3.9 D Chloride 105 Carbon Dioxide 22 Anion Gap 13 BUN 12 D Creatinine 0.8 Creat Clearance w eGFR > 60 Random Glucose 116 H D Hemoglobin A1c % Calcium 9.2 Total Bilirubin 0.3 D AST 25 ALT 43 Alkaline Phosphatase 129 H Total Protein 7.5 Albumin 4.0 Triglycerides Cholesterol Total LDL Cholesterol HDL Cholesterol Lipase 136 Urine Color Dkyellow Urine Appearance Slcloudy Urine pH 5.0 Ur Specific [place] 1.026 Urine Protein 2+ H Urine Glucose (UA) Negative Urine Ketones Trace H Urine Blood Negative Urine Nitrite Negative Urine Bilirubin Negative Urine Urobilinogen Negative Urine WBC (Auto) 5 Urine RBC (Auto) 8 Ur Epithelial Cells Few Hyaline Casts 8 Urine Mucus Few Urine HCG, Qual Negative Blood Type Antibody Screen 01/11/17 01/11/17 13:15 13:15 WBC RBC Hgb Hct MCV MCH MCHC RDW Plt Count MPV Neutrophils % Lymphocytes % Monocytes % Eosinophils % Basophils % PT with INR INR Sodium Potassium Chloride Carbon Dioxide Anion Gap BUN Creatinine Creat Clearance w eGFR Random Glucose Hemoglobin A1c % 9.0 H Calcium Total Bilirubin AST ALT Alkaline Phosphatase Total Protein Albumin Triglycerides 115 Cholesterol 122 Total LDL Cholesterol 81 HDL Cholesterol 35 L Lipase Urine Color Urine Appearance Urine pH Ur Specific [place] Urine Protein Urine Glucose (UA) Urine Ketones Urine Blood Urine Nitrite Urine Bilirubin Urine Urobilinogen Urine WBC (Auto) Urine RBC (Auto) Ur Epithelial Cells Hyaline Casts Urine Mucus Urine HCG, Qual Blood Type Antibody Screen Abdominal CT with Contrast (01/11/17): The liver is within normal limits in size with suggestion of mild steatosis. The spleen and pancreas appear unremarkable. Gallbladder is over distended measuring 11 cm in sagittal length without gross intraluminal stones or wall thickening. Partially distended stomach without gross wall thickening. Both adrenal glands and both kidneys appear unremarkable. There is no evidence of small bowel obstruction Normal- appearing terminal ileum and appendix. A few tiny mesenteric lymph nodes again seen in the right lower quadrant which are nonspecific. Moderate amount of fecal residue in the colon with a few diverticula mainly in the distal descending, proximal and mid sigmoid colon. Lack of oral contrast in the distal colon is limiting evaluation of its wall. There is suggestion of thickening of the proximal and mid sigmoid colon wall with minimal stranding around the junction of the distal descending and proximal sigmoid colon. No free fluid, fluid collection or extraluminal air identified. Partially distended urinary bladder without wall thickening Status post hysterectomy. Mild stranding in the anterior pelvic wall suggestive of prior surgery. Visualized osseous structures appear intact. Normal size and enhancement of the abdominal aorta down through its bifurcation IMPRESSION: Over distended gallbladder without intraluminal stones or wall thickening. Diverticulosis coli with possible thickening of the distal descending as well as proximal and mid sigmoid colon wall that is poorly evaluated due to lack of distention with oral contrast and there is no definite surrounding inflammatory changes at this time. ASSESSMENT/PLAN: Patient is a 51 year old female who initially presented last week (01/05/17) for abdominal pain and was diagnosed with Diverticulitis and discharged from the ED with PO antibiotics. Patient now returns for increasing abdominal pain and is found to still have Diverticultits with failed outpatient therapy. Patient admitted for further monitoring and management. Acute Diverticulits w/ Colitis -CT revealed diverticulitis with colitis but no evidence of appendicitis or cholecystitis -Will start Ceftriaxone 1gm IVPB daily -Will start Metronidazole 500mg Q8H IVPB -Will begin Fluids IV NS @100mls/hr -Place on NPO for bowel rest. Will attempt to advance diet tomorrow to clear liquids -Blood cultures pending -Stool cultures and C.diff ordered as patient continues to have diarrhea -Will continue frequent abdominal examination -Will continue to monitor CBC and vitals Elevated Alkaline Phosphatase -Trending down from last week 141--> 129 -Will order GGT to rule out bone vs. liver etiology NIDDMII-Controlled -PO medications held -A1C ordered and is 9.0%. -ISS and BGM HTN-Controlled -Will resume home medication Lisinopril 2.5mg daily -Continue to monitor BP HLD -Will resume home medication Simvastatin 40mg daily which is Lipitor 20mg at the hospital -Lipid panel ordered and would ideally want LDL <70. Once results are in we will adjust medication accordingly F/E/N -IV NS @100mls/hr -Electrolyes wnl -NPO for bowel rest Prophylaxis -Moderate risk. Lovenox 40mg SQ daily for DVT -No GI required Disposition -Full code -Will need IV antibiotics due to failed outpatient therapy. Will need a minimum of two nights as inpatient Visit type - Emergency Visit Emergency Visit: Yes ED Registration Date: 01/11/17 Care time: The patient presented to the Emergency Department on the above date and was hospitalized for further evaluation of their emergent condition. - New Patient This patient is new to me today: Yes Date on this admission: 01/11/17 - Critical Care Critical Care patient: No
[2017-01-11] MEDS: INSULIN SLIDING SCALE (NOVOLOG) 1 VIAL SQ SCH (16:42)
[2017-01-11 16:51] LABS: URINE LEUK ESTERASE TRACE (NEGATIVE)
[2017-01-11] MEDS: ATORVASTATIN CA 20 MG TABLET (FP) PO SCH (21:20)
[2017-01-12] MEDS: METRONIDAZOLE 500 MG PREMIXED 500 MG/100 ML MG IVPB SCH ×3 (01:50→17:50)
[2017-01-12] MEDS: SODIUM CHLORIDE 1,000 ML IV SCH ×4 (06:00→16:54)
[2017-01-12] MEDS: INSULIN SLIDING SCALE (NOVOLOG) 1 VIAL SQ SCH ×3 (06:03→16:54)
[2017-01-12] MEDS ORDERED: DEXTROSE 50%-WATER - 25 GM/50 ML VIAL IVPUSH ONE (06:14)
[2017-01-12] MEDS ORDERED: DEXTROSE 50%-WATER 25 GM/50 ML DISP.SYRIN ONE (06:22)
[2017-01-12 08:43] LABS: MCH 25.2 pg (25.7-33.7); MCHC 33.4 g/dl (32.0-36.0); MEAN CELL VOLUME 75.3 fl (80-96); MEAN PLT VOLUME 8.3 fl (7.5-11.1); PLATELET COUNT 286 K/MM3 (134-434); WHITE BLOOD COUNT 9.3 K/mm3 (4.0-10.0)
[2017-01-12 09:18] LABS: ALBUMIN 3.2 g/dl (3.4-5.0); ALK PHOS 112 U/L (45-117); ANION GAP 11 (8-16); BILIRUBIN,TOTAL 0.6 mg/dL (0.2-1.0); CALCIUM 8.4 mg/dL (8.5-10.1); CO2 21 mmol/L (21-32); CREATININE 0.7 mg/dL (0.55-1.02); GLUCOSE,RANDOM 200 mg/dL (74-106); SGOT/AST 21 U/L (15-37); SGPT/ALT 38 U/L (12-78); TOT PROT 6.3 g/dl (6.4-8.2)
[2017-01-12] MEDS: ASPIRIN 81 MG CHEWABLE TABLETS PO SCH (09:21)
[2017-01-12] MEDS: LISINOPRIL 5 MG TABLET (FP) PO SCH (09:21)
[2017-01-12] MEDS: CEFTRIAXONE 1 G/50 ML PREMIX 50 ML IVPB SCH (09:22)
[2017-01-12] MEDS: ENOXAPARIN NA (PORCINE) 40 MG/0.4 ML DISP.SYRIN SQ SCH (09:22)
[2017-01-12] MEDS ORDERED: INSULIN (NOVOLOG) ASPART 100 UNITS/ML 10ML VIAL ONE ×2 (11:29→17:36)
--- NOTE | 2017-01-12 11:37 | PN ---
Progress Note (short form) - Note Progress Note: Subjective: No fever or chills. Abd pain improved , abd distention imporved. diarrhea improved ( 2 BMs today ) . No N/V Objective: Vital Signs: Last Vital Signs Temp Pulse Resp BP Pulse Ox 98 F 74 20 124/65 100 01/12/17 04:00 01/12/17 04:00 01/12/17 04:00 01/12/17 04:00 01/11/17 21:00 Laboratory Results - last 24 hr 01/10/17 01/11/17 01/11/17 23:00 13:15 13:15 WBC RBC Hgb Hct MCV MCH MCHC RDW Plt Count MPV Sodium Potassium Chloride Carbon Dioxide Anion Gap BUN Creatinine Creat Clearance w eGFR POC Glucometer Random Glucose Hemoglobin A1c % 9.0 H Calcium Total Bilirubin GGT AST ALT Alkaline Phosphatase Total Protein Albumin Triglycerides 115 Cholesterol 122 Total LDL Cholesterol 81 HDL Cholesterol 35 L Urine Color Dkyellow Urine Appearance Slcloudy Urine pH 5.0 Ur Specific [place] 1.026 Urine Protein 2+ H Urine Glucose (UA) Negative Urine Ketones Trace H Urine Blood Negative Urine Nitrite Negative Urine Bilirubin Negative Urine Urobilinogen Negative Ur Leukocyte Esterase Trace H Urine WBC (Auto) 5 Urine RBC (Auto) 8 Urine RBC No Result Required. Ur Epithelial Cells Few Hyaline Casts 8 Urine Mucus Few Urine HCG, Qual Negative 01/11/17 01/11/17 01/11/17 16:38 18:50 22:29 WBC RBC Hgb Hct MCV MCH MCHC RDW Plt Count MPV Sodium Potassium Chloride Carbon Dioxide Anion Gap BUN Creatinine Creat Clearance w eGFR POC Glucometer 73 74 98 Random Glucose Hemoglobin A1c % Calcium Total Bilirubin GGT AST ALT Alkaline Phosphatase Total Protein Albumin Triglycerides Cholesterol Total LDL Cholesterol HDL Cholesterol Urine Color Urine Appearance Urine pH Ur Specific [place] Urine Protein Urine Glucose (UA) Urine Ketones Urine Blood Urine Nitrite Urine Bilirubin Urine Urobilinogen Ur Leukocyte Esterase Urine WBC (Auto) Urine RBC (Auto) Urine RBC Ur Epithelial Cells Hyaline Casts Urine Mucus Urine HCG, Qual 01/12/17 01/12/17 01/12/17 05:53 06:43 07:30 WBC 9.3 D RBC 4.41 Hgb 11.1 Hct 33.2 MCV 75.3 L MCH 25.2 L MCHC 33.4 RDW 13.0 Plt Count 286 MPV 8.3 Sodium Potassium Chloride Carbon Dioxide Anion Gap BUN Creatinine Creat Clearance w eGFR POC Glucometer 66 240 Random Glucose Hemoglobin A1c % Calcium Total Bilirubin GGT AST ALT Alkaline Phosphatase Total Protein Albumin Triglycerides Cholesterol Total LDL Cholesterol HDL Cholesterol Urine Color Urine Appearance Urine pH Ur Specific [place] Urine Protein Urine Glucose (UA) Urine Ketones Urine Blood Urine Nitrite Urine Bilirubin Urine Urobilinogen Ur Leukocyte Esterase Urine WBC (Auto) Urine RBC (Auto) Urine RBC Ur Epithelial Cells Hyaline Casts Urine Mucus Urine HCG, Qual 01/12/17 07:30 WBC RBC Hgb Hct MCV MCH MCHC RDW Plt Count MPV Sodium 139 Potassium 4.3 Chloride 107 Carbon Dioxide 21 Anion Gap 11 BUN 7 D Creatinine 0.7 Creat Clearance w eGFR > 60 POC Glucometer Random Glucose 200 H D Hemoglobin A1c % Calcium 8.4 L Total Bilirubin 0.6 D GGT 42 AST 21 ALT 38 Alkaline Phosphatase 112 Total Protein 6.3 L Albumin 3.2 L Triglycerides Cholesterol Total LDL Cholesterol HDL Cholesterol Urine Color Urine Appearance Urine pH Ur Specific [place] Urine Protein Urine Glucose (UA) Urine Ketones Urine Blood Urine Nitrite Urine Bilirubin Urine Urobilinogen Ur Leukocyte Esterase Urine WBC (Auto) Urine RBC (Auto) Urine RBC Ur Epithelial Cells Hyaline Casts Urine Mucus Urine HCG, Qual : Physical Exam: NAD , AAOx3 ,pleasant and cooperative CV: RRR, no MRG Lungs: CTAB Abd: soft, ND, no TTP , NL BS EXT: no edema or erythema. ASSESSMENT AND PLAN: 51 y/o pleasant lady with h/o HTN, DM, Hysterectomy and recent dx of sigmoid colitis who presented with ABD pain and diarrhea x 1 week after despite being on Abx. She was diagnosed with acute diverticulitis and colitis 1- Acute diverticulitis with colitis: improved - Cont ceftriaxone and flagyl - fiollow stool cx and C diff. - Cont IVF. Decrease rate -advance to clears today and soft tomorrow - Monitor abd exam. - follow blood cx 2- H/o DM : A1c 9 . was recently started on Meds - hold po meds and Cont SSI 3- H/o HTN: Cont lisinopril 4- H/o HLP , cont lipitor . HLOC. Possible dc tomorrow if cont to improve Visit type - Emergency Visit Emergency Visit: Yes ED Registration Date: 01/11/17 Care time: The patient presented to the Emergency Department on the above date and was hospitalized for further evaluation of their emergent condition. - New Patient This patient is new to me today: No - Critical Care Critical Care patient: No
[2017-01-12] MEDS: ATORVASTATIN CA 20 MG TABLET (FP) PO SCH (21:16)
[2017-01-13] MEDS: METRONIDAZOLE 500 MG PREMIXED 500 MG/100 ML MG IVPB SCH ×2 (02:38→09:01)
[2017-01-13] MEDS: SODIUM CHLORIDE 1,000 ML IV SCH (06:02)
[2017-01-13] MEDS: INSULIN SLIDING SCALE (NOVOLOG) 1 VIAL SQ SCH ×2 (06:26→11:49)
[2017-01-13 08:40] LABS: MAGNESIUM 1.8 mg/dL (1.8-2.4)
[2017-01-13 08:41] LABS: PHOSPHOROUS 2.9 mg/dL (2.5-4.9)
[2017-01-13] MEDS: ASPIRIN 81 MG CHEWABLE TABLETS PO SCH (09:00)
[2017-01-13] MEDS: LISINOPRIL 5 MG TABLET (FP) PO SCH (09:00)
[2017-01-13] MEDS: ENOXAPARIN NA (PORCINE) 40 MG/0.4 ML DISP.SYRIN SQ SCH (09:01)
[2017-01-13 10:26] VITALS: BP 117/67; PULSE 71; TEMP 97.6
[2017-01-13] MEDS: CEFTRIAXONE 1 G/50 ML PREMIX 50 ML IVPB SCH (10:43)
[2017-01-13] MEDS ORDERED: INSULIN (NOVOLOG) ASPART 100 UNITS/ML 10ML VIAL ONE (11:46)
--- NOTE | 2017-01-13 14:45 | PN ---
Teaching Attending Note Name of Resident: Kiana Rosenthal ATTENDING PHYSICIAN STATEMENT I saw and evaluated the patient. I reviewed the resident's note and discussed the case with the resident. I agree with the resident's findings and plan as documented. SUBJECTIVE: No fever or chills. No abd pain. diarrhea improved ,still had 3 BMs today, but last one more formed OBJECTIVE: NAD , AAOx3 ,pleasant and cooperative CV: RRR, no MRG Lungs: CTAB Abd: soft, ND, no TTP , NL BS EXT: no edema or erythema. ASSESSMENT AND PLAN: 51 y/o pleasant lady with h/o HTN, DM, Hysterectomy and recent dx of sigmoid colitis who presented with ABD pain and diarrhea x 1 week after despite being on Abx. She was diagnosed with acute diverticulitis and colitis 1- Acute diverticulitis with colitis: improved - switch to po abx ( cefixime and flagyl ) to complete a 7 day course -C diff neg , stool cx pending -Dc IVF . cont soft diet 2- H/o DM : A1c 9 . was recently started on Meds - cont home meds 3- H/o HTN: Cont lisinopril 4- H/o HLP , cont lipitor . DC home today.
--- NOTE | 2017-01-13 17:19 | DS ---
Physical Exam: SUBJECTIVE: Patient seen and examined. Pt denies fever, chills, chest pain, palpitations, abdominal pain. Pt reports diarrhea has improved. Pt feeling much better today. No events overnight. OBJECTIVE: Vital Signs Period Temp Pulse Resp BP Sys/Millan Pulse Ox Last 24 Hr 97.6 F-98.8 F 66-71 16-20 116-145/61-79 100-100 PHYSICAL EXAM GENERAL: The patient is awake, alert, and fully oriented, in no acute distress. HEAD: Normal with no signs of trauma. EYES: Extraocular movements intact, sclera anicteric, conjunctiva clear. ENT: Moist mucous membranes. NECK: Trachea midline, full range of motion, supple. LUNGS: Breath sounds equal, clear to auscultation bilaterally, no wheezes, no crackles, no accessory muscle use. HEART: Regular rate and rhythm, S1, S2 without murmur, rub or gallop. ABDOMEN: Soft, nontender, nondistended, normoactive bowel sounds, no guarding, no rebound, no masses. EXTREMITIES: Warm, well-perfused, no edema. NEUROLOGICAL: Cranial nerves II through XII grossly intact. Normal speech, gait not observed. PSYCH: Normal mood, normal affect. SKIN: Warm, dry, normal turgor, no rashes or lesions noted. LABS Laboratory Results - last 24 hr 01/12/17 01/13/17 01/13/17 21:26 06:01 07:00 Potassium 4.2 POC Glucometer 165 134 Phosphorus 2.9 Magnesium 1.8 01/13/17 11:35 Potassium POC Glucometer 201 Phosphorus Magnesium HOSPITAL COURSE: Date of Admission:01/11/17 Date of Discharge: 01/13/17 51yo F with PMH of DM, htn, hld, recent diagnosis of sigmoid colitis, who returned presenting with persistent abdominal pain and diarrhea x 1 week despite antibiotic therapy, found to have acute diverticulitis and colitis. Pt received IV antibiotics and converted to a po regimen for discharge (Cefixime and Flagyl). 01/11/17 CT Ab/Pelvis -. distended gallbladder without intraluminal stones or wall thickening. Diverticulosis coli with possible thickening of the distal descending and proximal/mid sigmoid suggestive of colitis. 01/10/17 blood culture (-) x 72 hrs 01/11/17 c-diff (-) 01/11/17 stool cultures (-) x 24 hrs Pt is independent for ADLs. Pt is stable for discharge home. Minutes to complete discharge: 35 Discharge Summary Reason For Visit: ABD PAIN Condition: Improved - Instructions Diet, Activity, Other Instructions: You were treated for diverticulitis and colitis. Please resume your home medications as prescribed. Do not take the antibiotics you were prescribed last time you left the Emergency Room. Instead take your new prescriptions for antibiotics: Cefixeme twice a day (every 12 hrs) starting tomorrow and Flagyl three times per day (every 8 hrs) starting today at 4pm. Please advance your diet as tolerated to a high fiber diet. Please increase your physical activity as tolerated. Aim for 1 bowel movement everyday. Avoid constipation. If needed, please use [id number] laxatives as indicated. Please schedule a follow-up appointment with your new GastroIntestinal Doctor ( Dr. Glaser) in 1 month for a colonoscopy. Please schedule a follow-up appointment at our [facility] with either Dr. Patel (on Fridays 1-4:30pm) or with Dr. Pereira (on Fridays 1-4:30pm). You can make an appointment with either of these Primary Care Doctors by calling Dr. Martinez's office. Please return to the hospital immediately if you experience persistent or increased abdominal pain, if your irritated neck muscle becomes red or your arm starts to swell, or for any medical emergency. Referrals: Calixto Martinez MD [Staff Physician] - 1 Week (Please schedule an appointment with either Dr. Patel (on Fridays 1-4:30pm) or with Dr. Pereira (on Friday 1-4:30pm).) Martínez Glaser MD [Staff Physician] - 1 Month Disposition: HOME - Home Medications Comprehensive Discharge Medication List: Ambulatory Orders Aspirin [ASA -] 81 mg PO DAILY 01/05/17 Glipizide 10 mg PO DAILY 01/05/17 Lisinopril [Zestril] 2.5 mg PO DAILY 01/05/17 Metformin HCl [Metformin HCl ER] 1,000 mg PO BID 01/05/17 Simvastatin [Zocor -] 40 mg PO HS 01/05/17 Metformin HCl 500 mg PO HS 01/11/17 Cefixime [Suprax -] 200 mg PO BID #8 capsule 01/13/17 Metronidazole [Flagyl -] 500 mg PO TID #12 tablet 01/13/17 This patient is new to me today: Yes Date on this admission: 01/14/17 Emergency Visit: Yes ED Registration Date: 01/11/17 Care time: The patient presented to the Emergency Department on the above date and was hospitalized for further evaluation of their emergent condition. Critical Care patient: No - Discharge Referral Referred to [facility] No
== END 2017-01-13 12:55 | disposition home or self-care (01) | DRG 392 ==
LOC: JER 22:47 → JERBED 01-11 08:01 → UNDOADMIN 01-11 08:06 → J6S 01-11 13:30
PROVIDERS: ADMIT Internal Medicine; ATTEND Internal Medicine
DX: K57.92 Diverticulitis of intestine, part unspecified, without perforation or abscess without bleeding (principal); R10.32 Left lower quadrant pain; E11.9 Type 2 diabetes mellitus without complications; I10 Essential (primary) hypertension; E78.5 Hyperlipidemia, unspecified; K82.8 Other specified diseases of gallbladder; K52.89 Other specified noninfective gastroenteritis and colitis; Z79.4 Long term (current) use of insulin
CPT/HCPCS: 36415; 74177-TC; 80053; 80061; 81003; 81015; 82977; 83036; 83690; 83721; 83735; 84100; 84132; 84703; 85025; 85027; 85610; 86850; 86900; 86901; 87040; 87045; 87046; 87205; 87324; 87449; 99283-25; J1644